=== PATIENT | female | born 1950 | race Caucasian/White ===

== ENCOUNTER 2016-08-09 11:45 | Day surgery (SDC) | payer MEDICARE ==
[2016-07-31 11:29] VITALS: BMI 23.8
[2016-08-09] MEDS ORDERED: Lactated Ringer's 1,000 ML IV ONE (18:55)
[2016-08-09] MEDS ORDERED: Midazolam 2 MG/2 ML VIAL ONE (18:59)
[2016-08-09] MEDS ORDERED: Propofol 10 mg/ml Inj (20 ML) ONE (18:59)
--- NOTE | 2016-08-09 19:26 | PCM.SURG1 ---
Surgeon's Initial Post Op Note - Surgeon's Notes Surgeon: Dr. Parry Rnp: None Type of Anesthesia: General LMA Anesthesia Administered By: Dr Virk Pre-Operative Diagnosis: 66 yo postmenopausal bleeding, Thickened endometrium, fibroid uterus, endomerial polyp Operative Findings: av uteru polyp and fibroid Post-Operative Diagnosis: Same as above Operation Performed: Hysteroscopy Myosure D and C Specimen/Specimens Removed: Emc, fibroid uterus, EMC,ECC Estimated Blood Loss: EBL {In ML}: 10 Blood Products Given: N/A Drains Used: No Drains Post-Op Condition: Good Date of Surgery/Procedure: 08/09/16 Time of Surgery/Procedure: 19:25
--- NOTE | 2016-08-09 19:57 | OP ---
PROCEDURE DATE: 08/09/2016 PREOPERATIVE DIAGNOSES: A 66-year-old female with postmenopausal bleeding, a thickened endometrium, endometrial polyp, fibroid uterus. POSTOPERATIVE DIAGNOSES: A 66-year-old female with postmenopausal bleeding, a thickened endometrium, endometrial polyp, fibroid uterus. PROCEDURE: Hysteroscopy, MyoSure, D and C. SURGEON: Dr. Parry. TYPE OF ANESTHESIA: General LMA. ANESTHESIOLOGIST: Dr. Virk. FINDINGS: An anteverted uterus approximately 6 weeks' gestation, noted to have an endometrial polyp and a fibroid. COMPLICATIONS: None. ESTIMATED BLOOD LOSS: 10 mL. INTRAVENOUS FLUID: 500 mL. INS AND OUTS: 100 mL. SPECIMEN: Endometrial polyp together with fibroid, EMC and ECC. PROCEDURE: The patient was informed of the risk factors, benefits, and alternatives of procedure. R isk factors included infection, bleeding, damage to surrounding organs and tissue, complication from anesthesia and possible . After informed consent was obtained, she was then taken to the operat ing room, prepped and draped in normal sterile fashion, placed in dorsal lithotomy position. A weigh mery speculum was placed into the vagina. The anterior lip of the cervix was grasped with a single-to oth tenaculum. The uterus was gently sounded to approximately 8 cm. Upon complete uterine dilation, the scope was then placed and a complete surveillance of the uterine cavity was then performed and i t was noted that she had an endometrial polyp together with the leiomyoma. The MyoSure device was th en activated. Under direct visualization, the fibroid together ____ which was like a hysteroscopy an d myomectomy was then performed, myoma was removed. Excellent hemostasis was noted and an endometria l polyp. Then, the hysteroscopy was then removed and a fractional D and C was then performed. The p atient tolerated the procedure well. All instruments and lap count were correct x 2. The patient wa s then taken to recovery in stable condition and instructed to follow up in the office in approximate ly 2 weeks. Michelle Parry MD cc: [id number] TT: 08/09/2016 19:56:50 erika
[2016-08-09 20:14] VITALS: O2SAT 97
[2016-08-09 21:06] VITALS: BP 143/61; PULSE 56; RESP 16; TEMP 97.4
== END 2016-08-09 20:50 | disposition home or self-care (01) ==
LOC: C.SDS 11:45
PROVIDERS: ATTEND Obstetrics & Gynecology
DX: D25.9 Leiomyoma of uterus, unspecified (principal); N84.0 Polyp of corpus uteri; N95.0 Postmenopausal bleeding
CPT/HCPCS: 58561; 88305; 88342; J1885; J2250; J2704; J3010; J7120